=== PATIENT | male | born 1940 | race Native Hawaiian/Other Pacific Islander ===

== ENCOUNTER 2016-12-01 19:10 | Emergency (ER) | payer SELFPAY ==
[~2016-12-01] VITALS: Ht 154.9 cm; Wt 85.0 kg
[~2016-12-01 19:10] MED LIST: ALLO100T PO; ASPI81 CHEW; DIPH50TA PO; FLUV40CA3 PO; GAVISUS; ISOS60 PO; L-CA500C2 PO; RAMI2.5C29 PO; RANI150 PO; TAMS5CAP PO; TRIA.1%T TOP
[2016-12-01] MEDS ORDERED: SODIUM CHLORIDE 0.9% FLUSH 5 ML FLUSH IVF PRN (19:30)
[2016-12-01 19:45] VITALS: BP 148/67; PULSE 69; RESP 18; TEMP 98.8; O2SAT 96
[2016-12-01 19:54] LABS: AUTOMATED NEUTROPHIL # 1.4 TH/MM3 (1.8-7.7); BASOPHIL # 0.1 TH/MM3 (0-0.2); BASOPHIL % 1.4 % (0.0-2.0); EOSINOPHIL # 0.4 TH/MM3 (0-0.4); EOSINOPHIL % 9.5 % (0.0-4.0); HEMATOCRIT 45.9 % (39.0-51.0); HEMO FLAGS DIFF FINAL; LYMPH % 46.9 % (9.0-44.0); LYMPHOCYTE # 2.1 TH/MM3 (1.0-4.8); MEAN CELL VOLUME 98.9 FL (80.0-100.0); MEAN CORPUSCULAR HEMOGLOBIN 33.2 PG (27.0-34.0); MEAN CORPUSCULAR HGB CONC 33.5 % (32.0-36.0); NEUT % 32.2 % (16.0-70.0); PLATELET COUNT 229 TH/MM3 (150-450); RED BLOOD COUNT 4.64 MIL/MM3 (4.50-5.90); RED CELL DISTRIBUTION WIDTH 12.9 % (11.6-17.2); WHITE BLOOD COUNT 4.4 TH/MM3 (4.0-11.0)
--- NOTE | 2016-12-01 20:01 | PD ---
HPI Chief Complaint: fell, worried about brain tumor Time Seen by Provider: 19:37 Travel History International Travel<30 days: No Contact w/Intl Traveler<30days: No Traveled to known affect area: No History of Present Illness HPI The patient is a 76-year-old male that complains of chest pain and vertigo for the last 2 days. The patient states he has chest pain that began 2 days ago located in the left anterior chest wall. The pain is constant and sharp and knifelike. He does have some slight nausea but he does have vertigo. There is no vomiting or diaphoresis or shortness of breath. There is no radiation of pain. The patient also fell because of vertigo today. He denies any tinnitus or hearing loss but does have left ear pain and itching. The patient is very worried that he has a brain tumor because his brother had similar symptoms and he had a brain tumor. The patient and the son want an MRI. The patient speaks only Czech but his son is an excellent silver lap machine tender. They do not want the option of TV translation. The patient has had this chest pain before and it comes on and gets worse when the patient is anxious or upset. He denies any fever. He denies any head trauma and did not hurt himself in the fall. PFSH Past Medical History Hypertension: Yes Kidney Stones: Yes Social History Alcohol Use: No Tobacco Use: No Substance Use: No Allergies-Medications (Allergen,Severity, Reaction): Coded Allergies: Penicillin (Verified Allergy, Severe, HIVES, 12/01/16) Reported Meds & Prescriptions Reported Meds & Active Scripts Active Reported Fish Oil ([place]-3 Fatty Acids) 1,000 Mg Cap 1,000 Mg PO DAILY Flomax (Tamsulosin HCl) 0.4 Mg Cap 0.4 Mg PO HS Finasteride 5 Mg Tab 5 Mg PO HS Do not crush. Rosuvastatin (Rosuvastatin Calcium) 10 Mg Tab 10 Mg PO HS [concor] 5 Mg PO DAILY Ramipril 2.5 Mg Cap 2.5 Mg PO HS Isosorbide Mononitrate ER (Isosorbide Mononitrate) 60 Mg Tab 60 Mg PO DAILY Aspirin 81 Mg Tabdr 81 Mg PO DAILY Allopurinol 100 Mg Tab 100 Mg PO DAILY Review of Systems Except as stated in HPI: all other systems reviewed are Neg Physical Exam Narrative GENERAL: The patient is alert, oriented 3 in moderate apparent distress with his vertigo. SKIN: Warm and dry. HEAD: Atraumatic. Normocephalic. EYES: Pupils equal and round. No scleral icterus. No injection or drainage. ENT: No nasal bleeding or discharge. Mucous membranes pink and moist. NECK: Trachea midline. No JVD. There is no meningismus. CARDIOVASCULAR: Regular rate and rhythm. No murmur appreciated. RESPIRATORY: No accessory muscle use. Clear to auscultation. Breath sounds equal bilaterally. GASTROINTESTINAL: Abdomen soft, non-tender, nondistended. Hepatic and splenic margins not palpable. MUSCULOSKELETAL: No obvious deformities. No clubbing. No cyanosis. No edema. NEUROLOGICAL: Awake and alert. No obvious cranial nerve deficits. Motor grossly within normal limits. Normal speech. PSYCHIATRIC: Appropriate mood and affect; insight and judgment normal. Data Data Last Documented VS Vital Signs Date Time Temp Pulse Resp B/P Pulse Ox O2 Delivery O2 Flow Rate FiO2 12/01/16 22:00 66 17 114/68 96 Room Air 12/01/16 19:45 98.8 Orders Electrocardiogram (12/01/16 19:19) Ckmb (Isoenzyme) Profile (12/01/16 19:19) Complete Blood Count With Diff (12/01/16 19:19) Comprehensive Metabolic Panel (12/01/16 19:19) Magnesium (Mg) (12/01/16 19:19) Prothrombin Time / Inr (Pt) (12/01/16 19:19) Act Partial Throm Time (Ptt) (12/01/16 19:19) Troponin I (12/01/16 19:19) Ecg Monitoring (12/01/16 19:19) Bilateral Bp Monitoring (12/01/16 19:19) Iv Access Insert/Monitor (12/01/16 19:19) Oximetry (12/01/16 19:19) Oxygen Administration (12/01/16 19:19) Sodium Chloride 0.9% Flush (Ns Flush) (12/01/16 19:30) Chest, Pa & Lat (12/01/16 19:19) Mri Brain W&W/O Contrast (12/01/16 19:37) Gadodiamide Pf Inj (Omniscan Pf Inj) (12/01/16 21:21) Meclizine (Antivert) (12/01/16 22:30) Ciprofloxacin (Cipro) (12/01/16 22:30) Labs Laboratory Tests Test 12/01/16 19:44 White Blood Count 4.4 TH/MM3 Red Blood Count 4.64 MIL/MM3 Hemoglobin 15.4 GM/DL Hematocrit 45.9 % Mean Corpuscular Volume 98.9 FL Mean Corpuscular Hemoglobin 33.2 PG Mean Corpuscular Hemoglobin 33.5 % Concent Red Cell Distribution Width 12.9 % Platelet Count 229 TH/MM3 Mean Platelet Volume 8.6 FL Neutrophils (%) (Auto) 32.2 % Lymphocytes (%) (Auto) 46.9 % Monocytes (%) (Auto) 10.0 % Eosinophils (%) (Auto) 9.5 % Basophils (%) (Auto) 1.4 % Neutrophils # (Auto) 1.4 TH/MM3 Lymphocytes # (Auto) 2.1 TH/MM3 Monocytes # (Auto) 0.4 TH/MM3 Eosinophils # (Auto) 0.4 TH/MM3 Basophils # (Auto) 0.1 TH/MM3 CBC Comment DIFF FINAL Differential Comment Prothrombin Time 10.8 SEC Prothromb Time International 1.0 RATIO Ratio Activated Partial 24.3 SEC Thromboplast Time Sodium Level 142 MEQ/L Potassium Level 4.6 MEQ/L Chloride Level 107 MEQ/L Carbon Dioxide Level 26.6 MEQ/L Anion Gap 8 MEQ/L Blood Urea Nitrogen 22 MG/DL Creatinine 1.10 MG/DL Estimat Glomerular Filtration 65 ML/MIN Rate Random Glucose 123 MG/DL Calcium Level 8.1 MG/DL Magnesium Level 1.9 MG/DL Total Bilirubin 1.1 MG/DL Aspartate Amino Transf 19 U/L (AST/SGOT) Alanine Aminotransferase 28 U/L (ALT/SGPT) Alkaline Phosphatase 74 U/L Total Creatine Kinase 67 U/L Troponin I LESS THAN 0.02 NG/ML Total Protein 6.8 GM/DL Albumin 3.4 GM/DL [facility] Medical Decision Making Medical Screen Exam Complete: Yes Emergency Medical Condition: Yes Medical Record Reviewed: Yes Interpretation(s) The MRI brain shows no acute abnormality. The complete metabolic profile shows a BUN 22, GFR 65, glucose 123, calcium 8.1 with total bilirubin 1.1 but is otherwise unremarkable. The cardiac enzymes are normal. The CBC is normal. Differential Diagnosis Acute left otitis media, vertigo, atypical chest pain, electrolyte imbalance, renal insufficiency, ischemic CVA Narrative Course The patient has an acute left otitis media. He also has vertigo which may be related to his left otitis media. An MRI of the brain revealed no abscess extending to the brain. The patient was worried that he might have a brain tumor because his brother had the same symptoms with a brain tumor. Both the patient and his son wanted a MRI. Diagnosis Primary Impression: Acute left otitis media Additional Impression: Vertigo Additional Instructions: As we discussed, follow-up with Dr. Merlos. The meclizine is one tablet 3 times daily. The antibiotic is one tablet twice daily for 10 days. Med/Other Pt SpecificInfo: Prescription(s) given Scripts Ciprofloxacin (Cipro)500 Mg Vat988 Mg PO BID 14 Days Ref 0 Prov:Ray Stevenson MD 12/01/16 Meclizine 25 Mg Chew25 Mg CHEW TID #30 TAB Ref 0 Prov:Ray Stevenson MD 12/01/16 Disposition: 01 DISCHARGE HOME Condition: Stable Ray Stevenson MD Dec 01, 2016 20:01
[2016-12-01 20:04] LABS: CHLORIDE 107 MEQ/L (98-107); POTASSIUM 4.6 MEQ/L (3.5-5.1); SODIUM (NA) 142 MEQ/L (136-145)
[2016-12-01 20:08] LABS: ANION GAP 8 MEQ/L (5-15); BICARBONATE 26.6 MEQ/L (21.0-32.0); BLOOD UREA NITROGEN 22 MG/DL (7-18); MAGNESIUM 1.9 MG/DL (1.5-2.5)
[2016-12-01 20:10] LABS: APTT (PATIENT) 24.3 SEC (24.3-30.1); PROTHROMBIN TIME - PATIENT 10.8 SEC (9.8-11.6)
--- NOTE | 2016-12-01 20:10 | RADHPO ---
EXAM DATE/TIME: 12/01/2016 19:53 [facility] COMPARISON: CHEST SINGLE AP, January 11, 2014, 20:11. INDICATIONS : Chest pain and dizziness. MEDICAL HISTORY : None. SURGICAL HISTORY : None. ENCOUNTER: Initial ACUITY: 2 days PAIN SCORE: 5/10 LOCATION: Bilateral chest FINDINGS: PA and lateral views of the chest demonstrate the lungs to be symmetrically aerated without evidence of mass, infiltrate or effusion. Slight elevation left hemidiaphragm. The cardiomediastinal contours are unremarkable. Osseous structures are intact. CONCLUSION: No acute disease. Urbano Walter MD on December 01, 2016 at 20:08 Board Certified Radiologist. This report was verified electronically.
[2016-12-01 20:11] LABS: ALT (GPT) 28 U/L (12-78); AST (GOT) 19 U/L (15-37); GLOMERULAR FILTRATION RATE 65 ML/MIN (>89)
[2016-12-01 20:12] LABS: TOTAL BILIRUBIN ADULT 1.1 MG/DL (0.2-1.0)
[2016-12-01 20:14] LABS: ALKALINE PHOSPHATASE 74 U/L (45-117)
[2016-12-01 20:17] LABS: CREATINE KINASE 67 U/L (39-308)
[2016-12-01] MEDS ORDERED: FINA5TAB2 PO (21:08)
[2016-12-01] MEDS ORDERED: CONCOR PO (21:08)
[2016-12-01] MEDS ORDERED: ROSU1TAB6 PO (21:08)
[2016-12-01] MEDS ORDERED: RAMI2.5C PO (21:08)
[2016-12-01] MEDS ORDERED: ISOS60TA PO (21:08)
[2016-12-01] MEDS ORDERED: TAMS5CAP PO (21:08)
[2016-12-01] MEDS ORDERED: ASPI1TAB69 PO (21:08)
[2016-12-01] MEDS ORDERED: ALLO100T PO (21:08)
[2016-12-01] MEDS ORDERED: FISH1000 PO (21:08)
[2016-12-01 21:11] VITALS: BP_SYST 119; BP_SYST 125; BP_DIAS 68; BP_DIAS 69; PULSE 68; RESP 18; O2SAT 95
[2016-12-01] MEDS ORDERED: GADODIAMIDE PF 287 MG/ML 20 ML VIAL (for RAD MRI) IV ONE (21:21)
[2016-12-01 21:30] VITALS: BP 118/66; PULSE 71; RESP 17; O2SAT 97
--- NOTE | 2016-12-01 21:49 | RADHPO ---
EXAM DATE/TIME: 12/01/2016 21:28 [facility] COMPARISON: No previous studies available for comparison. INDICATIONS : Dizziness. CONTRAST: 17 cc Omniscan (gadodiamide) IV MEDICAL HISTORY : Diabetes mellitus type 2. Hypertension. SURGICAL HISTORY : None. ENCOUNTER: Initial ACUITY: 2 day PAIN SCORE: 6/10 LOCATION: cranial TECHNIQUE: Multiplanar, multisequence MRI of the brain was performed both prior to and following the administrat ion of paramagnetic contrast. FINDINGS: CEREBRUM: The ventricles are normal for age. No evidence of midline shift, mass lesion, hemorrhage or acute in farction. No extraaxial fluid collections are seen. The pituitary gland and suprasellar cistern are normal in configuration. WHITE MATTER: No significant signal abnormalities are seen in the white matter. POSTERIOR FOSSA: The cerebellum and brainstem are intact. The 4th ventricle is midline. The cerebellopontine angle is unremarkable. The cerebellar tonsils are normal in position. DIFFUSION IMAGING: No focal areas of restricted diffusion are seen. No evidence of acute infarction. EXTRACRANIAL: The visualized portions of the orbits and paranasal sinuses are unremarkable. POST-CONTRAST: No abnormal areas of parenchymal or dural enhancement. No evidence of blood-brain barrier breakdown. CONCLUSION: No acute intracranial abnormality. No acute infarction. Urbano Walter MD on December 01, 2016 at 21:46 Board Certified Radiologist. This report was verified electronically.
[2016-12-01 22:00] VITALS: BP 114/68; PULSE 66; RESP 17; O2SAT 96
[2016-12-01] MEDS ORDERED: CIPROFLOXACIN 500 MG TAB PO ONE (22:30)
[2016-12-01] MEDS ORDERED: MECLIZINE HCL 25 MG TAB PO ONE (22:30)
[2016-12-01] MEDS ORDERED: CIPR-9 PO (22:51)
[2016-12-01] MEDS ORDERED: MECL25CH CHEW (22:51)
[2016-12-01 22:53] VITALS: BP 117/71
--- NOTE | 2016-12-03 07:01 | EKG ---
Date Performed: 12/01/2016 Time Performed: 19:25:16 PTAGE: 76 years EKG: Sinus rhythm Normal ECG NO PREVIOUS TRACING DOCTOR: Manpreet Palma Interpretating Date/Time 12/03/2016 06:58:56
== END 2016-12-01 23:00 | disposition home or self-care (01) ==
LOC: PHED 19:10
DX: H66.92 Otitis media, unspecified, left ear (principal); R42 Dizziness and giddiness; R07.9 Chest pain, unspecified; I10 Essential (primary) hypertension; Z87.442 Personal history of urinary calculi
CPT/HCPCS: 70553; 71020; 80053; 82550; 83735; 84484; 85025; 85610; 85730; 93005; 99285; A9579

== ENCOUNTER 2017-05-15 22:56 | Observation (INO) | payer MEDICAID ==
[~2017-05-15] VITALS: Ht 172.7 cm; Wt 106.0 kg
[~2017-05-15 22:56] MED LIST changes: +ASPI1TAB69 PO; -ASPI81 CHEW; +CIPR-9 PO; +CONCOR PO; -DIPH50TA PO; +FINA5TAB2 PO; +FISH1000 PO; -FLUV40CA3 PO; -GAVISUS; -ISOS60 PO; +ISOS60TA PO; -L-CA500C2 PO; +MECL25CH CHEW; +RAMI2.5C PO; -RAMI2.5C29 PO; -RANI150 PO; +ROSU1TAB6 PO; -TRIA.1%T TOP
[2017-05-15 22:58] VITALS: BP 205/80; PULSE 53; RESP 16; TEMP 98.6; O2SAT 95
[2017-05-15 23:09] VITALS: BP 171/74; PULSE 71; RESP 20; O2SAT 96
[2017-05-15] MEDS ORDERED: NITROGLYCERIN 2% OINT 1 GM PACKET TOP ONE (23:30)
[2017-05-15] MEDS ORDERED: SODIUM CHLORIDE 0.9% FLUSH 10 ML FLUSH IVF PRN (23:30)
[2017-05-15] MEDS ORDERED: ASPIRIN 81 MG CHEW TAB PO ONE (23:30)
--- NOTE | 2017-05-15 23:49 | RADRPT ---
EXAM DATE/TIME: 05/15/2017 23:14 [facility] COMPARISON: CHEST SINGLE AP, January 11, 2014, 20:11. INDICATIONS : Chest pain x 2 days. MEDICAL HISTORY : Myocardial infarction. Hypertension SURGICAL HISTORY : None. ENCOUNTER: Initial ACUITY: 2 days PAIN SCORE: 8/10 LOCATION: Bilateral chest FINDINGS: A single view of the chest demonstrates the lungs to be symmetrically aerated without evidence of mas s, infiltrate or effusion. There is some elevation of the left hemidiaphragm. There is a suggestion of some pulmonary venous congestion. The cardiomediastinal contours are unremarkable and stable. Oss eous structures are intact and stable. CONCLUSION: Pulmonary venous congestion. Carlos Barbour MD on May 15, 2017 at 23:47 Board Certified Radiologist. This report was verified electronically.
[2017-05-15 23:54] LABS: AUTOMATED NEUTROPHIL # 1.2 TH/MM3 (1.8-7.7); BASOPHIL % 0.6 % (0.0-2.0); EOSINOPHIL # 0.3 TH/MM3 (0-0.4); EOSINOPHIL % 6.1 % (0.0-4.0); HEMATOCRIT 45.4 % (39.0-51.0); HEMO FLAGS DIFF FINAL; LYMPH % 57.5 % (9.0-44.0); LYMPHOCYTE # 2.9 TH/MM3 (1.0-4.8); MEAN CELL VOLUME 98.6 FL (80.0-100.0); MEAN CORPUSCULAR HEMOGLOBIN 33.8 PG (27.0-34.0); MEAN CORPUSCULAR HGB CONC 34.3 % (32.0-36.0); NEUT % 23.8 % (16.0-70.0); PLATELET COUNT 218 TH/MM3 (150-450); RED CELL DISTRIBUTION WIDTH 13.4 % (11.6-17.2)
[2017-05-16] VITALS: BP 137/62; PULSE 51; RESP 16; O2SAT 96
--- NOTE | 2017-05-16 00:12 | PD ---
HPI Chief Complaint: Chest Pain Time Seen by Provider: 23:09 Travel History International Travel<30 days: No Contact w/Intl Traveler<30days: No Traveled to known affect area: No History of Present Illness HPI This is a 76-year-old male who presents to the emergency department with chest discomfort that's been going on intermittently for 2 weeks, moderate severity, radiating to the left shoulder and left back. His family reports that he's been increasingly tired when he walks. He denies any shortness of breath, nausea or diaphoresis. He's never had chest discomfort like this before. He does have a history of hypertension. The family speaks Turkish. They were offered a ingredient mixer but they declined. Patient denies any recent travel or long trips. PFSH Past Medical History Cardiovascular Problems: Yes Diabetes: No Patient Takes Glucophage: No Diminished Hearing: No Hypertension: Yes Kidney Stones: Yes ?: Not Family History Family Myocardial Infarction: Yes Social History Alcohol Use: No Tobacco Use: No Substance Use: No Allergies-Medications (Allergen,Severity, Reaction): Coded Allergies: Penicillin (Verified Allergy, Severe, HIVES, 05/15/17) Reported Meds & Prescriptions Reported Meds & Active Scripts Active Reported Aspirin 81 (Aspirin) 81 Mg Tabdr 81 Mg PO DAILY Isosorbide Mononitrate 20 Mg Tab 60 Mg PO BID Take 2 doses 7 hours apart. Bisoprolol (Bisoprolol Fumarate) 10 Mg Tab 10 Mg PO DAILY Flomax (Tamsulosin HCl) 0.4 Mg Cap 0.4 Mg PO HS Finasteride 5 Mg Tab 5 Mg PO HS Do not crush. Review of Systems Except as stated in HPI: all other systems reviewed are Neg Physical Exam Narrative GENERAL:Well appearing, no acute distress SKIN: Focused skin assessment warm and dry. HEAD: Atraumatic. Normocephalic. EYES: Pupils equal and round. No injection or drainage. ENT: Moist mucous membranes NECK: Trachea midline. CARDIOVASCULAR: Regular rate and rhythm. No murmur appreciated. RESPIRATORY: Clear to auscultation. Breath sounds equal bilaterally. GASTROINTESTINAL: Abdomen soft, non-tender, nondistended. MUSCULOSKELETAL: No obvious deformities. NEUROLOGICAL: Awake and alert. No obvious cranial nerve deficits. Moving all extremities. PSYCHIATRIC: Appropriate mood and affect; insight and judgment normal. Data Data Last Documented VS Vital Signs Date Time Temp Pulse Resp B/P Pulse Ox O2 Delivery O2 Flow Rate FiO2 05/16/17 00:00 51 16 137/62 96 Room Air 05/15/17 22:58 98.6 Orders Electrocardiogram (05/15/17 23:18) Complete Blood Count With Diff (05/15/17 23:18) Comprehensive Metabolic Panel (05/15/17 23:18) Troponin I (05/15/17 23:18) Chest, Single Ap (05/15/17 23:18) Ecg Monitoring (05/15/17:18) Bilateral Bp Monitoring (05/15/17 23:18) Iv Access Insert/Monitor (05/15/17 23:18) Oximetry (05/15/17:18) Oxygen Administration (05/15/17:18) Aspirin Chew (Aspirin Chew) (05/15/17 23:30) Nitroglycerin 2% Oint (Nitroglycerin 2% (05/15/17 23:30) Sodium Chloride 0.9% Flush (Ns Flush) (05/15/17 23:30) Acetaminophen (Tylenol) (05/16/17 00:30) B-Type Natriuretic Peptide (05/16/17 00:56) Admit Order (Ed Use Only) (05/16/17 01:45) Activity Bed Rest With Brp (05/16/17 01:45) Vital Signs (Adult) Q4H (05/16/17 01:45) Cardiac Rhythm .As Directed (05/16/17 01:45) Notify Dr: Other .PRN (05/16/17 01:45) Notify Parameters (05/16/17 01:45) Resp Oxygen Nasal Cannula (05/16/17 ) Diet Npo (05/16/17 Breakfast) Troponin I (05/16/17 01:45) Troponin I (05/16/17 04:45) Electrocardiogram (05/16/17 01:45) Electrocardiogram (05/16/17 04:45) ^ Obtain (05/16/17 01:45) Sodium Chloride 0.9% Flush (Ns Flush) (05/16/17 01:45) Sodium Chloride 0.9% Flush (Ns Flush) (05/16/17 01:45) Quill Cleaning Machine Operator / Telemetry SOPHIA.Q8H (05/16/17 01:45) Labs Laboratory Tests Test 05/15/17 05/15/17 23:30 23:32 White Blood Count 5.0 TH/MM3 Red Blood Count 4.60 MIL/MM3 Hemoglobin 15.6 GM/DL Hematocrit 45.4 % Mean Corpuscular Volume 98.6 FL Mean Corpuscular Hemoglobin 33.8 PG Mean Corpuscular Hemoglobin 34.3 % Concent Red Cell Distribution Width 13.4 % Platelet Count 218 TH/MM3 Mean Platelet Volume 8.6 FL Neutrophils (%) (Auto) 23.8 % Lymphocytes (%) (Auto) 57.5 % Monocytes (%) (Auto) 12.0 % Eosinophils (%) (Auto) 6.1 % Basophils (%) (Auto) 0.6 % Neutrophils # (Auto) 1.2 TH/MM3 Lymphocytes # (Auto) 2.9 TH/MM3 Monocytes # (Auto) 0.6 TH/MM3 Eosinophils # (Auto) 0.3 TH/MM3 Basophils # (Auto) 0.0 TH/MM3 CBC Comment DIFF FINAL Differential Comment B-Type Natriuretic Peptide 27 PG/ML Sodium Level 140 MEQ/L Potassium Level 4.5 MEQ/L Chloride Level 106 MEQ/L Carbon Dioxide Level 26.6 MEQ/L Anion Gap 7 MEQ/L Blood Urea Nitrogen 26 MG/DL Creatinine 1.04 MG/DL Estimat Glomerular Filtration 69 ML/MIN Rate Random Glucose 95 MG/DL Calcium Level 9.4 MG/DL Total Bilirubin 1.0 MG/DL Aspartate Amino Transf 24 U/L (AST/SGOT) Alanine Aminotransferase 32 U/L (ALT/SGPT) Alkaline Phosphatase 72 U/L Troponin I LESS THAN 0.02 NG/ML Total Protein 7.3 GM/DL Albumin 3.7 GM/DL [facility] Medical Decision Making Medical Screen Exam Complete: Yes Emergency Medical Condition: Yes Interpretation(s) afebrile, no tachycardia, hypertensive no leukocytosis electrolytes within normal limits bnp 27 troponin .02 Last 24 hours Impressions Chest X-Ray 05/15/17 2227 Signed Impressions: Service Date/Time: Monday, May 15, 2017 23:14 - CONCLUSION: Pulmonary venous congestion. Carlos Barbour MD Differential Diagnosis Acute coronary syndrome, congestive heart failure, aortic dissection, pulmonary embolism, pneumonia Narrative Course This is a 76-year-old male who presents the emergency department with left- sided chest discomfort that radiates to the shoulder into the back. His symptoms are concerning for acute coronary syndrome. He was placed on a monitor and an IV was established. He was given aspirin and nitroglycerin. EKG is nonischemic. Labs are reassuring. I don't suspect pulmonary embolism or alternate life-threatening etiology of his chest pain given the description of the symptoms. Patient will be observed in the chest pain center for serial cardiac enzymes. Diagnosis Primary Impression: Chest pain Qualified Code: R07.9 - Chest pain, unspecified type Admitting Information Admitting Physician Requests: Barbara Cameron MD May 16, 2017 00:12
[2017-05-16] MEDS ORDERED: ACETAMINOPHEN 500 MG CPLT PO ONE (00:30)
[2017-05-16 00:54] LABS: ALKALINE PHOSPHATASE 72 U/L (45-117); ALT (GPT) 32 U/L (12-78); AST (GOT) 24 U/L (15-37); BLOOD UREA NITROGEN 26 MG/DL (7-18); GLOMERULAR FILTRATION RATE 69 ML/MIN (>89)
[2017-05-16 00:55] LABS: ANION GAP 7 MEQ/L (5-15); BICARBONATE 26.6 MEQ/L (21.0-32.0); CHLORIDE 106 MEQ/L (98-107); POTASSIUM 4.5 MEQ/L (3.5-5.1); SODIUM (NA) 140 MEQ/L (136-145)
[2017-05-16] MEDS ORDERED: ASPI-110 PO (01:14)
[2017-05-16] MEDS ORDERED: BISO10TA5 PO (01:14)
[2017-05-16] MEDS ORDERED: ISOS20TA PO (01:14)
[2017-05-16] MEDS ORDERED: SODIUM CHLORIDE 0.9% FLUSH 10 ML FLUSH IV FLUSH PRN (01:45)
[2017-05-16] MEDS: SODIUM CHLORIDE 0.9% FLUSH 10 ML FLUSH IV FLUSH SCH ×2 (01:45→09:00)
[2017-05-16 01:52] VITALS: O2SAT 95
[2017-05-16 05:48] VITALS: BP 123/57; PULSE 60; RESP 20; O2SAT 96
--- NOTE | 2017-05-16 08:06 | HHI.HP ---
[facility] Primary Care Physician Raymond Merlos MD Chief Complaint Chest pain History of Present Illness This is a 76-year-old male that presents to the ED via private vehicle with his son with a complaint of chest discomfort. He speaks Romanian and his son is doing the translating at the request of the patient. He has been having intermittent left-sided chest discomfort that radiates into the neck and left shoulder. When it occurs it last for 5-6 hours and can be worsened with activity which his son describes as walking. Denies associated shortness of breath, nausea, or diaphoresis. His son states that as been happening about every 3-4 days. States he has had this evaluated by a year ago with a local autos disassembler and had a stress test that was okay. He is compliant with his medications. Denies recent illness. Denies fevers or chills. Denies recent travel. Review of Systems General: Patient denies fevers, chills recent, and recent travel HEENT: Patient denies headache, sore throat, difficulty swallowing. Cardiovascular: Has the chest discomfort as mentioned above. Denies sensation of heart beating rapidly or irregularly. No syncope. Respiratory: Denies shortness of breath or inspirational chest discomfort. Denies coughing wheezing or hemoptysis. GI: Patient denies nausea, vomiting, diarrhea, abdominal pain, bloody stools. Musculoskeletal: Patient denies joint pain or edema. Denies calf pain or edema. Neurovascular: Patient denies numbness, tingling, weakness in extremities. Denies headache. Endocrine: Denies polyuria and polydipsia. Hematologic: Denies easy bruising. Skin: Denies rash or itching. Past Family Social History Allergies: Coded Allergies: Penicillin (Verified Allergy, Severe, HIVES, 05/15/17) Past Medical History BPH, hypertension. Denies diabetes, hyperlipidemia, and known CAD. Past Surgical History Noncontributory. Denies prior cardiac catheterization. Reported Medications Reported Meds & Active Scripts Active Reported Aspirin 81 (Aspirin) 81 Mg Tabdr 81 Mg PO DAILY Isosorbide Mononitrate 20 Mg Tab 60 Mg PO BID Take 2 doses 7 hours apart. Bisoprolol (Bisoprolol Fumarate) 10 Mg Tab 10 Mg PO DAILY Flomax (Tamsulosin HCl) 0.4 Mg Cap 0.4 Mg PO HS Finasteride 5 Mg Tab 5 Mg PO HS Do not crush. Active Ordered Medications Current Medications Medications (Trade) Dose Ordered Sig/Crystal Route Start Time Stop Time Status Last Admin (NS Flush) 2 ml UNSCH PRN IV FLUSH 05/16/17 01:45 (NS Flush) 2 ml BID IV FLUSH 05/16/17 01:45 05/16/17 01:45 Family History Denies family history of CAD. Social History Patient is a nonsmoker. Denies alcohol or illicit drugs. Physical Exam Vital Signs Vital Signs Date Time Temp Pulse Resp B/P Pulse Ox O2 Delivery O2 Flow Rate FiO2 05/16/17 05:48 60 20 123/57 96 Room Air 05/16/17 01:52 95 21 05/16/17 00:00 51 16 137/62 96 Room Air 05/15/17 23:09 71 20 171/74 96 05/15/17 22:58 98.6 53 16 205/80 95 Room Air Physical Exam GENERAL: This is a well-nourished, well-developed patient, in no apparent distress. Patient speaks in Romanian. His son is translating for him. HEENT: Head is atraumatic and normocephalic. Neck is supple without lymphadenopathy and trachea is midline. No JVD or carotid bruits. CARDIOVASCULAR: Regular rate and rhythm without murmurs, gallops, or rubs. RESPIRATORY: Clear to auscultation. Breath sounds equal bilaterally. No wheezes , rales, or rhonchi. Chest wall is nontender. No use of accessory muscles. GASTROINTESTINAL: Abdomen is nontender, nondistended. Abdomen soft. No obvious pulsatile mass or bruit. No CVA tenderness. Strong femoral pulses bilaterally. Normal bowel sounds in all quadrants. MUSCULOSKELETAL: Patient is moving upper and lower extremities freely. No calf tenderness or edema, no Homans sign. Strong pulses in upper and lower extremities. NEUROLOGICAL: Patient is alert and oriented. Cranial nerves 2-12 are grossly intact. No focal deficits and speech is clear. SKIN: No rash and turgor is normal. Laboratory Laboratory Tests Test 05/15/17 05/15/17 05/16/17 05/16/17 23:30 23:32 02:41 04:47 White Blood Count 5.0 Red Blood Count 4.60 Hemoglobin 15.6 Hematocrit 45.4 Mean Corpuscular Volume 98.6 Mean Corpuscular Hemoglobin 33.8 Mean Corpuscular Hemoglobin 34.3 Concent Red Cell Distribution Width 13.4 Platelet Count 218 Mean Platelet Volume 8.6 Neutrophils (%) (Auto) 23.8 Lymphocytes (%) (Auto) 57.5 Monocytes (%) (Auto) 12.0 Eosinophils (%) (Auto) 6.1 Basophils (%) (Auto) 0.6 Neutrophils # (Auto) 1.2 Lymphocytes # (Auto) 2.9 Monocytes # (Auto) 0.6 Eosinophils # (Auto) 0.3 Basophils # (Auto) 0.0 CBC Comment DIFF FINAL Differential Comment B-Type Natriuretic Peptide 27 Sodium Level 140 Potassium Level 4.5 Chloride Level 106 Carbon Dioxide Level 26.6 Anion Gap 7 Blood Urea Nitrogen 26 Creatinine 1.04 Estimat Glomerular Filtration 69 Rate Random Glucose 95 Calcium Level 9.4 Total Bilirubin 1.0 Aspartate Amino Transf 24 (AST/SGOT) Alanine Aminotransferase 32 (ALT/SGPT) Alkaline Phosphatase 72 Troponin I LESS THAN 0.02 LESS THAN 0.02 LESS THAN 0.02 Total Protein 7.3 Albumin 3.7 Result Diagram: 05/15/17 2330 05/15/17 2332 Imaging Last 48 hours Impressions Chest X-Ray 05/15/17 2318 Signed Impressions: Service Date/Time: Monday, May 15, 2017 23:14 - CONCLUSION: Pulmonary venous congestion. Carlos Barbour MD Course EKGs have sinus rhythm to sinus bradycardia without significant ST segment depressions or elevations. Assessment and Plan Assessment and Plan * Chest pain: Patient has had serial cardiac enzymes and EKGs for ruling out purposes. He has been seen by Dr. Daniel Veloz of cardiology in the chest pain center and will undergo a Lexiscan. He'll be discharged home if the stress test is nonischemic. * Hypertension: Continue current medication. * BPH: Continue current medication. Patient is stable at this time. He is agreeable to this plan. Aakash Mckinney May 16, 2017 08:06
[2017-05-16] MEDS ORDERED: ISOSORBIDE MONONITRATE 20 MG TAB PO SCH (09:00)
[2017-05-16] MEDS ORDERED: REGADENOSON INJ 0.4 MG/5 ML SYR ONE (09:18)
[2017-05-16] MEDS ORDERED: ASPIRIN 325 MG TAB PO SCH (09:30)
[2017-05-16] MEDS ORDERED: BISOPROLOL FUMARATE 5 MG TAB PO SCH (10:00)
--- NOTE | 2017-05-16 10:47 | RADRPT ---
EXAM DATE/TIME: 05/16/2017 08:59 [facility] COMPARISON: No previous studies available for comparison. INDICATIONS : Susbternal chest pain radiating to back. Angina. DOSE: 35.0 mCi Tc99m Myoview at stress. 11.0 mCi Tc99m Myoview at rest. 0.4 mg Lexiscan STRESS SYMPTOMS: Dyspnea and heart racing. EJECTION FRACTION: 61% MEDICAL HISTORY : Hypertension. SURGICAL HISTORY : None. ENCOUNTER: Initial ACUITY: 2 days PAIN SCALE: 4/10 LOCATION: Substernal chest TECHNIQUE: The patient underwent pharmacologic stress with infusion of prescribed dose. Continuous ECG tracing was monitored during stress. Gated SPECT imaging was performed after stress and conventional SPECT i maging was performed at rest. The examination was performed on a SPECT/CT scanner, both attenuation and non-corrected datasets were reviewed. FINDINGS: DISTRIBUTION: The maximum perfused segment at stress is in the <mid anterior septal wall. PERFUSION STUDY: The pattern of perfusion at stress is within normal limits. GATED STUDY: There is intact wall motion and thickening without hypokinetic or dyskinetic segments. CONCLUSION: Normal examination. RISK CATEGORY: Low (<1% Annual Mortality Rate) Herberth Ji MD on May 16, 2017 at 10:44 Board Certified Radiologist. This report was verified electronically.
[2017-05-16 11:00] VITALS: BP 144/65; PULSE 59; RESP 15; TEMP 97.9; O2SAT 98
[2017-05-16] MEDS ORDERED: IOHEXOL 350 MG/ML 10 ML VIAL (for RAD DIAG) IV ONE (13:20)
--- NOTE | 2017-05-16 13:35 | RADRPT ---
EXAM DATE/TIME: 05/16/2017 13:17 [place] COMPARISON: CT PULMONARY ANGIOGRAM, January 11, 2014, 22:26. INDICATIONS : Chest pain and shortness of breath. IV CONTRAST: 70 cc Omnipaque 350 (iohexol) IV RADIATION DOSE: 23.23 CTDIvol (mGy) MEDICAL HISTORY : Cardiovascular disease. Hypertension. SURGICAL HISTORY : None. ENCOUNTER: Initial ACUITY: 1 day PAIN SCALE: 6/10 LOCATION: Bilateral chest TECHNIQUE: Volumetric scanning of the chest was performed using a pulmonary embolism protocol MIP images were re constructed. Using automated exposure control and adjustment of the mA and/or kV according to patien t size, radiation dose was kept as low as reasonably achievable to obtain optimal diagnostic quality images. DICOM format image data is available electronically for review and comparison. Follow-up recommendations for incidentally detected pulmonary nodules are based at a minimum on nodul e size and patient risk factors according to Fleischner Society Guidelines. FINDINGS: Breathing motion artifact degrades the exam. PULMONARY ARTERIES: No filling defects are seen in the pulmonary arteries through the segmental level. LUNGS: There is no consolidation or pneumothorax . No concerning pulmonary nodule is visualized. PLEURAE: There is no pleural thickening or pleural effusion. MEDIASTINUM: The heart is at the upper limits of normal in terms of size. No pericardial effusion. Coronary artery atherosclerotic calcifications noted. No adenopathy. Aorta is normal in caliber. MUSCULOSKELETAL: Degenerative changes of the thoracic spine. MISCELLANEOUS: The visualized upper abdominal organs demonstrate no acute abnormality. CONCLUSION: 1. Breathing motion artifact degrades the exam. This limits the evaluation of the peripheral lower lo be pulmonary branches. 2. No pulmonary emboli observed. 3. Coronary artery atherosclerotic calcifications. Piyush Shultz Jr., MD on May 16, 2017 at 13:26 Board Certified Radiologist. This report was verified electronically.
--- NOTE | 2017-05-16 14:22 | EKG ---
Date Performed: 05/16/2017 Time Performed: 04:52:55 PTAGE: 76 years EKG: SINUS BRADYCARDIA WITH SINUS ARRHYTHMIA BORDERLINE ECG NO PREVIOUS TRACING DOCTOR: Daniel Veloz Interpretating Date/Time 05/16/2017 14:20:20
--- NOTE | 2017-05-16 14:22 | EKG ---
Date Performed: 05/15/2017 Time Performed: 23:08:26 PTAGE: 76 years EKG: SINUS BRADYCARDIA WITH SINUS ARRHYTHMIA BORDERLINE ECG NO PREVIOUS TRACING DOCTOR: Daniel Veloz Interpretating Date/Time 05/16/2017 14:20:56
--- NOTE | 2017-05-16 14:22 | EKG ---
Date Performed: 05/16/2017 Time Performed: 02:44:23 PTAGE: 76 years EKG: SINUS BRADYCARDIA WITH SINUS ARRHYTHMIA BORDERLINE ECG NO PREVIOUS TRACING DOCTOR: Daniel Veloz Interpretating Date/Time 05/16/2017 14:20:26
--- NOTE | 2017-05-16 14:27 | TR ---
Date Performed: 05/16/2017 Time Performed: 09:50:44 DOCTOR: Daniel Veloz DRUG LIST: CLINICAL HISTORY: REASON FOR TEST: REASON FOR ENDING: OBSERVATION: CONCLUSION: Lexiscan stress test was performed under standard four minute protocol. Radionuclid e was injected one minute prior to ending the test. No electrocardiographic abormalities were present to suggest ischemia. Nuclear imaging and interpretation are pending. COMMENTS:
--- NOTE | 2017-05-16 14:46 | HHI.DCPOC ---
Discharge Care Plan Diagnosis: (1) Chest pain (2) Hypertension Goals to Promote Your Health * To prevent worsening of your condition and complications * To maintain your health at the optimal level Directions to Meet Your Goals Take your medications as prescribed Follow your dietary instruction Follow activity as directed Keep your appointments as scheduled Take your immunizations and boosters as scheduled If your symptoms worsen call your PCP, if no PCP go to Urgent Care Center or Emergency Room Smoking is Dangerous to Your Health. Avoid second hand smoke Call the 24-hour hour crisis hotline for domestic abuse at Aakash Mckinney May 16, 2017 14:46
[2017-05-16] MEDS ORDERED: FINASTERIDE 5 MG TAB PO SCH (21:00)
== END 2017-05-16 15:10 | disposition home or self-care (01) ==
LOC: NEPC 22:56 → NEDA 05-16 01:47 → NEDH 05-16 05:38 → NEPHCDU 05-16 09:14
PROVIDERS: ADMIT Internal Medicine Interventional Cardiology; ATTEND Internal Medicine Interventional Cardiology
DX: R07.89 Other chest pain (principal); R00.1 Bradycardia, unspecified; I87.8 Other specified disorders of veins; R06.00 Dyspnea, unspecified; R06.02 Shortness of breath; I49.8 Other specified cardiac arrhythmias; I25.119 Atherosclerotic heart disease of native coronary artery with unspecified angina pectoris; I25.2 Old myocardial infarction; I10 Essential (primary) hypertension; N40.0 Benign prostatic hyperplasia without lower urinary tract symptoms; Z79.899 Other long term (current) drug therapy; Z79.82 Long term (current) use of aspirin
CPT/HCPCS: 71010; 71275; 78452; 80053; 83880; 84484; 85025; 85379; 93005; 93017; 99285; A9502; G0378; J2785; Q9967

== ENCOUNTER 2018-08-02 15:46 | Observation (INO) ==
--- NOTE | 2018-08-02 16:46 | XR ---
EXAM DATE: 08/02/2018 4:16 PM EDT AGE/SEX: 77 years / Male INDICATIONS: . Chest pain and elevated blood pressure. CLINICAL DATA: This is the patient's initial encounter. Patient reports that signs and symptoms have been present for 2 days and indicates a pain score of 5/10. MEDICAL/SURGICAL HISTORY: None. None. COMPARISON: [facility], CHEST 1V SINGLE AP, 05/05/2018. . FINDINGS: PA and lateral views of the chest demonstrate elevation left hemidiaphragm. Left basilar atelectasis. Right lung clear. The cardiomediastinal contours are unremarkable. Osseous structures are intact. Ky phosis and degenerative changes thoracic spine CONCLUSION: Elevation left hemidiaphragm with left basilar atelectasis/scarring. Electronically signed by: Urbano Walter MD 08/02/2018 4:45 PM EDT
[2018-08-02 18:03] LABS: Baso # (Auto) 0.1 th/mm3 (0.0-0.2); Baso % (Auto) 1.4 % (0.0-2.0); Eos # (Auto) 0.2 th/mm3 (0.0-0.4); Eos % (Auto) 4.2 % (0.0-4.0); Hematocrit 43.3 % (39.0-51.0); Hemoglobin 15.2 gm/dL (13.0-17.0); Lymph % (Auto) 44.7 % (9.0-44.0); Mean Corpuscular Hemoglobin 34.9 pg (27.0-34.0); Mean Corpuscular Volume 99.8 fL (80.0-100.0); Mean Platelet Volume 9.1 fL (7.0-11.0); Mono # (Auto) 0.4 th/mm3 (0.0-0.9); Mono % (Auto) 9.2 % (0.0-8.0); Neut # (Auto) 1.8 th/mm3 (1.8-7.7); Neut % (Auto) 40.5 % (16.0-70.0); Platelet Count 234 th/mm3 (150-450); Red Blood Count 4.34 mil/mm3 (4.50-5.90); Red Cell Distribution Width 13.5 % (11.6-17.2); White Blood Count 4.5 th/mm3 (4.0-11.0)
--- NOTE | 2018-08-02 18:06 | ED ---
HPI General Chief Complaint: Chest Pain Stated Complaint: Patient states chest pain Time Seen by Provider: 08/02/18 17:34 Source: patient Mode of arrival: ambulatory Limitations: language barrier (Stratus utilized for the purpose of this interview) History of Present Illness HPI narrative: Patient is a 77-year-old male that presents to the emergency room for evaluation of chest pain. Patient states it started at 9 AM this morning, he took 2 pain pills. The pain was midsternal, there was no radiation. He states the pain lasted for approximately 3 hours. He denied any nausea, shortness of breath. He states at that time his blood pressure was high and he had a headache. Patient is currently pain-free. He denies any visual changes, dizziness, fevers, chills. Patient is on a beta-gina add a nitrate. He denies any history of heart attack or stroke. He denies any other medical history besides hypertension. Patient speaks Greenlandic only. MD complaint: Reports chest pain STEMI Alert: No Onset (ago): hour(s) Duration: now resolved Onset: during rest Pain location: Reports substernal Severity: moderate Severity scale (1-10): 8 Quality: Reports heaviness Pain radiation: Reports none Relieving factors: nothing Exacerbating factors: nothing Related Data Home Medications Medication Instructions Recorded Confirmed tamsulosin [Flomax] 0.4 mg PO DAILY 08/02/18 08/02/18 Allergies Allergy/AdvReac Type Severity Reaction Status Date / Time penicillin G Allergy Severe HIVES Verified 08/02/18 17:45 Review of Systems ROS: all other systems reviewed are negative [facility] Medical History Medical History Hypertension (Acute) Social History Social History Substance History: No History of Abuse Smoking Status: Unknown if ever smoked Tobacco Type: Cigarettes How Often Do You Have a Drink Containing Alcohol: Monthly or less Immunization History Tetanus Immunization: Unsure Exam Narrative Exam Narrative: GENERAL: Overweight, well-developed, alert elderly male. Presenting in no acute distress. SKIN: Focused skin assessment warm/dry. HEAD: Atraumatic. Normocephalic. EYES: Pupils equal and round. No scleral icterus. No injection or drainage. ENT: No nasal bleeding or discharge. Mucous membranes pink and moist. NECK: Trachea midline. No JVD. CARDIOVASCULAR: Regular rate and rhythm. No murmur appreciated. RESPIRATORY: No accessory muscle use. Clear to auscultation. Breath sounds equal bilaterally. GASTROINTESTINAL: Abdomen soft, non-tender, nondistended. Hepatic and splenic margins not palpable. MUSCULOSKELETAL: No obvious deformities. No clubbing. No cyanosis. No edema. NEUROLOGICAL: Awake and alert. No obvious cranial nerve deficits. Motor grossly within normal limits. Normal speech. PSYCHIATRIC: Appropriate mood and affect; insight and judgment normal. Course Initial Documented Vital Signs Temperature 98.1 F 08/02/18 15:49 Pulse Rate 72 08/02/18 15:49 Respiratory Rate 20 08/02/18 15:49 Blood Pressure 161/72 H 08/02/18 15:49 Pulse Oximetry 97 08/02/18 15:49 Last Documented Vital Signs Temperature 98.1 F 08/02/18 15:49 Pulse Rate 62 08/02/18 18:00 Respiratory Rate 20 08/02/18 15:52 Blood Pressure 138/63 08/02/18 15:52 Pulse Oximetry 96 08/02/18 17:42 Medical Decision Making [facility] Narrative Medical decision making narrative: Patient presented for evaluation of chest pain that started at 9 AM lasting for approximately 3 hours. Patient is currently pain-free, vital signs are stable. Labs ordered and pending. Chest x -ray and EKG ordered and pending. CBC with no acute findings, chemistry with elevated BUN at 32, patient's urine is consistent with a urinary tract infection. He will be started on Macrobid. Stratus was again utilized to interpret and advise patient and his on findings. They verbalized understanding and are agreeable to stay. Admit orders placed. Medical Screen Exam Complete: Yes Emergency Medical Condition: Yes Differential Diagnosis Differential Diagnosis: ACS versus USA versus GERD versus metabolic abnormality versus arrhythmia versus other Lab Data Result diagrams: 08/02/18 16:55 08/02/18 16:55 Lab Results 08/02/18 08/02/18 08/02/18 Range/Units 16:55 16:55 16:55 WBC 4.5 (4.0-11.0) th/mm3 RBC 4.34 L (4.50-5.90) mil/mm3 Hgb 15.2 (13.0-17.0) gm/dL Hct 43.3 (39.0-51.0) % MCV 99.8 (80.0-100.0) fL MCH 34.9 H (27.0-34.0) pg MCHC 35.0 (32.0-36.0) % RDW 13.5 (11.6-17.2) % Plt Count 234 (150-450) th/mm3 MPV 9.1 (7.0-11.0) fL Neut % (Auto) 40.5 (16.0-70.0) % Lymph % (Auto) 44.7 H (9.0-44.0) % [place] % (Auto) 9.2 H (0.0-8.0) % Eos % (Auto) 4.2 H (0.0-4.0) % Baso % (Auto) 1.4 (0.0-2.0) % Neut # (Auto) 1.8 (1.8-7.7) th/mm3 Lymph # (Auto) 2.0 (1.0-4.8) th/mm3 [place] # (Auto) 0.4 (0.0-0.9) th/mm3 Eos # (Auto) 0.2 (0.0-0.4) th/mm3 Baso # (Auto) 0.1 (0.0-0.2) th/mm3 WBC Differential . Differential Comment Auto diff final Sodium 141 (136-145) meq/L Potassium 4.3 (3.5-5.1) meq/L Chloride 106 (98-107) meq/L Carbon Dioxide 25.9 (21.0-32.0) meq/L Anion Gap 9 (5-15) meq/L BUN 32 H (7-18) mg/dL Creatinine 1.17 (0.60-1.30) mg/dL Estimated GFR 60 L (>89) mL/min Random Glucose 96 (74-106) mg/dL Calcium 8.7 (8.5-10.1) mg/dL Total Bilirubin 1.6 H Cancelled (0.2-1.0) mg/dL Direct Bilirubin 0.3 H Cancelled (0.0-0.2) mg/dL Indirect Bilirubin 1.3 H Cancelled (0.0-0.8) mg/dL AST 17 Cancelled (15-37) U/L ALT 22 Cancelled (12-78) U/L Alkaline Phosphatase 65 Cancelled (45-117) U/L Total Creatine Kinase 110 (39-308) U/L CK-MB (CK-2) 1.8 (0.5-3.6) ng/mL Troponin I Less than 0.02 L (0.02-0.05) ng/mL Total Protein 7.3 Cancelled (6.4-8.2) g/dL Albumin 3.8 Cancelled (3.4-5.0) g/dL Lipase 179 Cancelled (73-393) U/L Urine Color (Yellw/Straw) Urine Clarity (Clear) Urine pH (5.0-8.5) Ur Specific Avery (1.002-1.035) Urine Protein (Neg-Trace) mg/dL Urine Glucose (UA) (Negative) mg/dL Urine Ketones (Negative) mg/dL Urine Occult Blood (Negative) Urine Nitrate (Negative) Urine Bilirubin (Negative) Urine Urobilinogen (Less than 2) mg/dL Ur Leukocyte Esterase (Negative) Urine RBC (0-3) /hpf Urine WBC (0-5) /hpf Calcium Oxalate Crystal (None) /hpf Urine Bacteria (None) /hpf Urine Mucus (Occasional) /lpf Micro UA Comment Ur Microscopic Review Urine Culture Comments 08/02/18 Range/Units 17:05 WBC (4.0-11.0) th/mm3 RBC (4.50-5.90) mil/mm3 Hgb (13.0-17.0) gm/dL Hct (39.0-51.0) % MCV (80.0-100.0) fL MCH (27.0-34.0) pg MCHC (32.0-36.0) % RDW (11.6-17.2) % Plt Count (150-450) th/mm3 MPV (7.0-11.0) fL Neut % (Auto) (16.0-70.0) % Lymph % (Auto) (9.0-44.0) % [place] % (Auto) (0.0-8.0) % Eos % (Auto) (0.0-4.0) % Baso % (Auto) (0.0-2.0) % Neut # (Auto) (1.8-7.7) th/mm3 Lymph # (Auto) (1.0-4.8) th/mm3 [place] # (Auto) (0.0-0.9) th/mm3 Eos # (Auto) (0.0-0.4) th/mm3 Baso # (Auto) (0.0-0.2) th/mm3 WBC Differential Differential Comment Sodium (136-145) meq/L Potassium (3.5-5.1) meq/L Chloride (98-107) meq/L Carbon Dioxide (21.0-32.0) meq/L Anion Gap (5-15) meq/L BUN (7-18) mg/dL Creatinine (0.60-1.30) mg/dL Estimated GFR (>89) mL/min Random Glucose (74-106) mg/dL Calcium (8.5-10.1) mg/dL Total Bilirubin (0.2-1.0) mg/dL Direct Bilirubin (0.0-0.2) mg/dL Indirect Bilirubin (0.0-0.8) mg/dL AST (15-37) U/L ALT (12-78) U/L Alkaline Phosphatase (45-117) U/L Total Creatine Kinase (39-308) U/L CK-MB (CK-2) (0.5-3.6) ng/mL Troponin I (0.02-0.05) ng/mL Total Protein (6.4-8.2) g/dL Albumin (3.4-5.0) g/dL Lipase (73-393) U/L Urine Color Ai (Yellw/Straw) Urine Clarity Hazy H (Clear) Urine pH 5.0 (5.0-8.5) Ur Specific Avery 1.027 (1.002-1.035) Urine Protein Negative (Neg-Trace) mg/dL Urine Glucose (UA) Negative (Negative) mg/dL Urine Ketones Negative (Negative) mg/dL Urine Occult Blood Negative (Negative) Urine Nitrate Negative (Negative) Urine Bilirubin Negative (Negative) Urine Urobilinogen 2.0 H (Less than 2) mg/dL Ur Leukocyte Esterase Large H (Negative) Urine RBC Less than 1 (0-3) /hpf Urine WBC 12 H (0-5) /hpf Calcium Oxalate Crystal Rare H (None) /hpf Urine Bacteria Rare H (None) /hpf Urine Mucus Few H (Occasional) /lpf Micro UA Comment Culture indicated Ur Microscopic Review Not Reportable Urine Culture Comments Culture indicated Imaging Data Radiologist's impression: Chest X-Ray 08/02/18 16:16 CONCLUSION: Elevation left hemidiaphragm with left basilar atelectasis/scarring. Head CT 08/02/18 17:50 CONCLUSION: No acute intracranial abnormality. . Discharge Plan Physicians Team ED Provider: Malia Cruz ED Midlevel Provider: Adeline Rice Primary Care Provider: Primary Care Physici,Bijal Rxs /Orders / Referrals /Forms Prescriptions: No Action tamsulosin [Flomax] 0.4 mg Capsule 0.4 mg PO DAILY RF: 0 Discharge Interventions Interventions: Vital Signs Last Done: 08/02/18 18:00 Status ED Status: Admitted Observation Patient
[2018-08-02 18:18] LABS: Bacteria,Urine Rare /hpf; Bilirubin,Urine Negative (Negative); Calcium Oxalate Crystals,Urine Rare /hpf; Clarity,Urine Hazy (Clear); Color,Urine Amber (Yellw/Straw); Glucose,Urine (UA) Negative (Negative); Leukocyte Esterase,Urine Large (Negative); Mucus,Urine Few /lpf (Occasional); Nitrite,Urine Negative (Negative); Specific Gravity,Urine 1.027 (1.002-1.035)
[2018-08-02 18:22] LABS: Anion Gap 9 meq/L (5-15); Blood Urea Nitrogen 32 mg/dL (7-18); Calcium 8.7 mg/dL (8.5-10.1); Carbon Dioxide 25.9 meq/L (21.0-32.0); Chloride 106 meq/L (98-107); Glomerular Filtration Rate 60 mL/min (>89); Glucose,Random 96 mg/dL (74-106); Potassium 4.3 meq/L (3.5-5.1); Sodium 141 meq/L (136-145)
[2018-08-02 18:26] LABS: Creatine Kinase 110 U/L (39-308)
--- NOTE | 2018-08-02 18:35 | CT ---
EXAM DATE: 08/02/2018 5:53 PM EDT AGE/SEX: 77 years / Male INDICATIONS: Chest pain and hypertension. CLINICAL DATA: This is the patient's initial encounter. Patient reports that signs and symptoms have been present for 1 day and indicates a pain score of 5/10. MEDICAL/SURGICAL HISTORY: Hypertension. None. RADIATION DOSE: 56.35 CTDI (mGy) COMPARISON: [facility], MRI BRAIN W & W/O CONTRAST, 12/01/2016. . TECHNIQUE: CT of the head without contrast. Using automated exposure control and adjustment of the mA and/or kV according to patient size, radiation dose was kept as low as reasonably achievable to ob tain optimal diagnostic quality images. DICOM format image data is available electronically for revi ew and comparison. FINDINGS: Cerebrum: The ventricles are normal for age. No evidence of midline shift, mass lesion, hemorrhage or acute infarction. No extraaxial fluid collections are seen. Posterior Fossa: The cerebellum and brainstem are intact. The 4th ventricle is midline. The cerebe llopontine angle is unremarkable. Extracranial: The visualized portion of the orbits is intact. Skull: The calvaria is intact. No evidence of skull fracture. CONCLUSION: No acute intracranial abnormality. . Electronically signed by: Damian Carranza MD 08/02/2018 6:33 PM EDT
[2018-08-02 18:41] LABS: Alanine Aminotransferase 22 U/L (12-78); Albumin 3.8 g/dL (3.4-5.0); Aspartate Aminotransferase 17 U/L (15-37); Creatine Kinase MB 1.8 ng/mL (0.5-3.6); Lipase 179 U/L (73-393)
[2018-08-02 18:43] LABS: Alkaline Phosphatase 65 U/L (45-117); Total Protein 7.3 g/dL (6.4-8.2)
[2018-08-02] MEDS ORDERED: Acetaminophen 500 MG Tablet PO PRN (18:53)
[2018-08-02] MEDS: Nitrofurantoin Monohydrate-Macrocrystal 100 MG Capsule PO SCH (20:15)
[2018-08-02 22:30] LABS: Creatine Kinase 118 U/L (39-308)
[2018-08-03 01:00] LABS: Creatine Kinase 112 U/L (39-308)
[2018-08-03 08:18] VITALS: BP 145/68; PULSE 60; RESP 20; TEMP 97.6; O2SAT 95
[2018-08-03] MEDS: Nitrofurantoin Monohydrate-Macrocrystal 100 MG Capsule PO SCH (08:21)
--- NOTE | 2018-08-03 08:50 | P.HPCA ---
History of Present Illness Primary Care Physician: No Primary Care Physician Chief Complaint: Chest pain History of Present Illness: This is a 77-year-old male the present via private vehicle with complaint of chest discomfort. He speaks Tajik only. He prefers to use the nighttime nurse for translation at this time. He states that he has had a constant discomfort for a day and a half in his chest. Possibly worsened by walking around doing chores in the house. Found nothing in particular to help. May be a little short of breath. No nausea or diaphoresis. Denies history of CAD but states he has had his a heart evaluated in the past. He had a nonischemic Lexiscan in April 2017. States he has been in [facility] for 5 years. Does not use a primary care physician in this area, he gets prescriptions when he goes back to [place]. States he takes blood pressure medicine prostate medicine but cannot recall their names. Denies recent illness. Denies fevers or chills. Patient has history of hypertension, BPH. Denies hyperlipidemia, diabetes, and known CAD. Lifetime non-smoker. Denies alcohol or illicit drug use. Denies family history of CAD. - Diagnosis (1) Chest pain (2) Hypertension (3) BPH (benign prostatic hyperplasia) (4) UTI (urinary tract infection) Review of Systems General: Patient denies fevers, chills, and recent travel. HEENT: Patient denies headache, sore throat, difficulty swallowing. Cardiovascular: Has the chest discomfort as mentioned above. Denies sensation of heart beating rapidly or irregularly. No syncope. Denies diaphoresis. Respiratory: A little bit of shortness of breath. Denies inspirational chest discomfort. Denies coughing wheezing or hemoptysis. GI: Patient denies nausea, vomiting, diarrhea, abdominal pain, bloody stools. Musculoskeletal: Patient denies joint pain or edema. Denies calf pain or edema. Neurovascular: Patient denies numbness, tingling, weakness in extremities. Denies headache. Endocrine: Denies polyuria and polydipsia. Hematologic: Denies easy bruising. Skin: Denies rash or itching. PMF - History History Provided By: Patient, Family Member - Medical History Medical History: Medical History (Last Reviewed 08/02/18 @ 18:05 by ARBEN Griffin) Hypertension - Tobacco History Second Hand Smoke Exposure: No Smoking Status: Never smoker Tobacco Type: Cigarettes - Alcohol History How Often Do You Have a Drink Containing Alcohol: Never - Substance Use History Substance History: No History of Abuse - Travel History Recent Travel in the [place] Within the Last 8 Weeks: No Recent Travel Out of the Country Within the Last 8 Weeks: No - Immunization History Tetanus Immunization: Unsure Medications and Allergies Active Medications: Active Medications Acetaminophen (Tylenol) 500 mg PO Q4H PRN PRN Reason: HEADACHE N[facility] Last Admin: 08/03/18 08:21 Dose: 100 mg Sodium Chloride (Ns Flush) 2 ml IV.FLUSH BID [facility] Last Admin: 08/03/18 08:21 Dose: 2 ml Sodium Chloride (Ns Flush) 2 ml IV.FLUSH PRN PRN PRN Reason: FLUSH AFTER USING IV ACCESS Last Admin: 08/02/18 20:34 Dose: 2 ml Tamsulosin HCl (Flomax) 0.4 mg PO DAILY [facility] Last Admin: 08/03/18 08:21 Dose: 0.4 mg Allergies Allergy/AdvReac Type Severity Reaction Status Date / Time penicillin G Allergy Severe HIVES Verified 08/02/18 17:45 Home Medications Medication Instructions Recorded Confirmed Type tamsulosin [Flomax] 0.4 mg PO DAILY 08/02/18 08/02/18 History Exam Vital signs: Vital Signs 08/02/18 15:49 08/02/18 15:52 08/02/18 17:42 Temperature 98.1 F Pulse Rate 72 60 64 Respiratory Rate 20 20 Blood Pressure 161/72 H 138/63 Pulse Oximetry 97 97 96 08/02/18 18:00 08/02/18 19:54 08/02/18 21:30 Temperature Pulse Rate 62 64 Respiratory Rate 16 Blood Pressure 114/58 L Pulse Oximetry 97 98 08/02/18 22:00 08/02/18 22:05 08/02/18 22:10 Temperature 98.2 F Pulse Rate 60 59 L Respiratory Rate 20 Blood Pressure 121/56 L Pulse Oximetry 98 98 08/03/18 05:01 08/03/18 08:15 Temperature 98.5 F 97.6 F Pulse Rate 52 L 60 Respiratory Rate 22 20 Blood Pressure 136/67 145/68 H Pulse Oximetry 96 95 Intake & Output 08/02/18 08/03/18 08/03/18 18:59 06:59 18:59 Intake Total 400 / 400 Balance 400 / 400 Weight 81.647 kg 81.64 kg Intake: Oral 400 / 400 Other: Date of Last Bowel Movement 08/01/18 Weight On Admission 81.64 kg Narrative: GENERAL: This is a well-nourished, well-developed patient, in no apparent distress. Patient speaks in clear complete sentences. Patient is pleasant. HEENT: Head is atraumatic and normocephalic. Neck is supple without lymphadenopathy and trachea is midline. No JVD or carotid bruits. CARDIOVASCULAR: Regular rate and rhythm without murmurs, gallops, or rubs. RESPIRATORY: Clear to auscultation. Breath sounds equal bilaterally. No wheezes , rales, or rhonchi. Chest wall is nontender. No use of accessory muscles. GASTROINTESTINAL: Abdomen is nontender, nondistended. Abdomen soft. No obvious pulsatile mass or bruit. No CVA tenderness. Strong femoral pulses bilaterally. Normal bowel sounds in all quadrants. MUSCULOSKELETAL: Patient is moving upper and lower extremities freely. No calf tenderness or edema, no Homans sign. Strong pulses in upper and lower extremities. NEUROLOGICAL: Patient is alert and oriented. Cranial nerves 2-12 are grossly intact. No focal deficits and speech is clear. SKIN: No rash and turgor is normal. Results 08/02/18 16:55 08/02/18 16:55 Cardiac Enzymes 08/02/18 08/02/18 08/02/18 Range/Units 16:55 16:55 21:40 AST 17 Cancelled (15-37) U/L CK-MB (CK-2) 1.8 (0.5-3.6) ng/mL Troponin I Less than 0.02 L Less than 0.02 L (0.02-0.05) ng/mL 08/03/18 Range/Units 00:15 AST (15-37) U/L CK-MB (CK-2) (0.5-3.6) ng/mL Troponin I Less than 0.02 L (0.02-0.05) ng/mL CBC 08/02/18 Range/Units 16:55 WBC 4.5 (4.0-11.0) th/mm3 RBC 4.34 L (4.50-5.90) mil/mm3 Hgb 15.2 (13.0-17.0) gm/dL Hct 43.3 (39.0-51.0) % Plt Count 234 (150-450) th/mm3 Neut # (Auto) 1.8 (1.8-7.7) th/mm3 Lymph # (Auto) 2.0 (1.0-4.8) th/mm3 [place] # (Auto) 0.4 (0.0-0.9) th/mm3 Eos # (Auto) 0.2 (0.0-0.4) th/mm3 Baso # (Auto) 0.1 (0.0-0.2) th/mm3 Comprehensive Metabolic Panel 08/02/18 08/02/18 Range/Units 16:55 16:55 Sodium 141 (136-145) meq/L Potassium 4.3 (3.5-5.1) meq/L Chloride 106 (98-107) meq/L Carbon Dioxide 25.9 (21.0-32.0) meq/L BUN 32 H (7-18) mg/dL Creatinine 1.17 (0.60-1.30) mg/dL Calcium 8.7 (8.5-10.1) mg/dL Direct Bilirubin 0.3 H Cancelled (0.0-0.2) mg/dL Indirect Bilirubin 1.3 H Cancelled (0.0-0.8) mg/dL AST 17 Cancelled (15-37) U/L ALT 22 Cancelled (12-78) U/L Alkaline Phosphatase 65 Cancelled (45-117) U/L Total Protein 7.3 Cancelled (6.4-8.2) g/dL Albumin 3.8 Cancelled (3.4-5.0) g/dL Intake and Output 08/02/18 08/03/18 08/03/18 22:59 06:59 14:59 Intake Total 400 / 400 Balance 400 / 400 Intake: Oral 400 / 400 Other: Date of Last Bowel Movement 08/01/18 Weight 81.64 kg 81.64 kg Weight On Admission 81.64 kg - Imaging and Cardiology Imaging: Impressions Chest X-Ray 08/02/18 16:16 CONCLUSION: Elevation left hemidiaphragm with left basilar atelectasis/scarring. Head CT 08/02/18 17:50 CONCLUSION: No acute intracranial abnormality. . EKG interpretations - EKG EKG shows: sinus rhythm (EKGs are sinus rhythm without significant ST segment depressions or elevations. There are nonspecific T wave changes.) Caprini VTE Risk Assessment Caprini VTE Risk Assessment: Moderate/High Risk (score >= 2) Caprini Risk Assessment Model: Point Value = 1 Point Value = 2 Point Value = 3 Point Value = 5 Age 41-60 Minor surgery BMI > 25 kg/m2 Swollen legs Varicose veins or History of unexplained or recurrent spontaneous Oral contraceptives or hormone replacement Sepsis (< 1 month) Serious lung disease, including pneumonia (< 1 month) Abnormal pulmonary function Acute myocardial infarction Congestive heart failure (< 1 month) History of inflammatory bowel disease Medical patient at bed rest Age 61-74 Arthroscopic surgery Major open surgery (> 45 min) Laparoscopic surgery (> 45 min) Malignancy Confined to bed (> 72 hours) Immobilizing plaster cast Central venous access Age >= 75 History of VTE Family history of VTE Factor V Leiden Prothrombin [id number] Lupus anticoagulant Anticardiolipin antibodies Elevated serum homocysteine Heparin-induced thrombocytopenia Other congenital or acquired thrombophilia Stroke (< 1 month) Elective arthroplasty Hip, pelvis, or leg fracture Acute spinal cord injury (< 1 month) Prophylaxis Regimen: Total Risk Factor Score Risk Level Prophylaxis Regimen 0-1 Low Early ambulation 2 Moderate Order ONE of the following: *Sequential Compression Device (SCD) *Heparin 5000 units SQ BID 3-4 Higher Order ONE of the following medications: *Heparin 5000 units SQ TID *Enoxaparin/Lovenox 40 mg SQ daily (WT < 150 kg, CrCl > 30 mL/min) *Enoxaparin/Lovenox 30 mg SQ daily (WT < 150 kg, CrCl > 10-29 mL/min) *Enoxaparin/Lovenox 30 mg SQ BID (WT < 150 kg, CrCl > 30 mL/min) AND/OR *Sequential Compression Device (SCD) 5 or more Highest Order ONE of the following medications: *Heparin 5000 units SQ TID (Preferred with Epidurals) *Enoxaparin/Lovenox 40 mg SQ daily (WT < 150 kg, CrCl > 30 mL/min) *Enoxaparin/Lovenox 30 mg SQ daily (WT < 150 kg, CrCl > 10-29 mL/min) *Enoxaparin/Lovenox 30 mg SQ BID (WT < 150 kg, CrCl > 30 mL/min) AND *Sequential Compression Device (SCD) Assessment and Plan - Assessment (1) Chest pain Code(s): R07.9 - Chest pain, unspecified Status: Acute (2) Hypertension Code(s): I10 - Essential (primary) hypertension Status: Acute (3) BPH (benign prostatic hyperplasia) Code(s): N40.0 - Benign prostatic hyperplasia without lower urinary tract symptoms Status: Acute (4) UTI (urinary tract infection) Code(s): N39.0 - Urinary tract infection, site not specified Status: Acute - Plan * Chest pain: Patient has had serial cardiac enzymes and EKGs for ruling out purposes. Patient was also seen by Dr. Nick of cardiology in the chest pain center. He will undergo a Lexiscan and be discharged home if the stress test is nonischemic. I instructed the patient on the importance of having a primary care physician in this area, he voices understanding. His is also at the bedside and understands as well. Return to ED for interval issues. * Hypertension: Continues medication. He has been also advised to bring in the bottles of medications that he takes next time he happens to come to the hospital. Or keep a list. * BPH: Continue medication. * UTI, start antibiotic. Needs follow-up with PCP. Patient is stable at this time. He is agreeable to this plan. H&P: Quality - VTE Deep Vein Thrombosis/Pulmonary Embolism Present on Admission: No
[2018-08-03] MEDS ORDERED: Regadenoson Inj 0.4 MG/5 ML Syringe IV.PUSH ONE (09:33)
--- NOTE | 2018-08-03 11:08 | NM ---
EXAM DATE: 08/03/2018 9:14 AM EDT AGE/SEX: 77 years / Male INDICATIONS:Angina. . Mid-sternal chest pain. CLINICAL DATA: This is the patient's initial encounter. Patient reports that signs and symptoms have been present for 1 day and indicates a pain score of 2/10. MEDICAL/SURGICAL HISTORY: Hypertension. . COMPARISON: [facility] [place], MYOCARDIAL PERF PHARM SPECT, 05/16/2017. . DOSE: 8.6 mCi Tc 99m Myoview at rest 27.3 mCi [id number] at stress 0.4 mg Lexiscan STRESS SYMPTOMS: None. EJECTION FRACTION: 64 % TECHNIQUE: The patient underwent pharmacologic stress with infusion of prescribed dose. Continuous ECG tracing was monitored during stress. Gated SPECT imaging was performed after stress and conventi onal SPECT imaging was performed at rest. The examination was performed on a SPECT/CT scanner, both attenuation and non-corrected datasets were reviewed. FINDINGS: Distribution: The maximum perfused segment at stress is in the septal wall. Perfusion Study: The pattern of perfusion at stress is within normal limits. As a summed stress s core of 4. Gated Study: There are intact wall motion and wall thickening without hypokinetic or dyskinetic segm ents. The ejection fraction is calculated at 64%. RISK CATEGORY: Low (<1% Annual Motality Rate) CONCLUSION: 1. Normal wall motion and calculated ejection fraction. 2. No fixed or reversible wall defect to suggest ischemia or infarction. Electronically signed by: Kade Conklin MD 08/03/2018 11:07 AM EDT
--- NOTE | 2018-08-03 16:53 | ECG ---
Date Performed: 08/02/2018 Time Performed: 15:58:10 PTAGE: 77 years EKG: Sinus rhythm WITH SINUS ARRHYTHMIA NORMAL ECG Since PREVIOUS TRACING , no significant change noted PREVIOUS TRACIN05/05/2018 08.36 DOCTOR: Perla Nick Interpretating Date/Time 08/03/2018 16:51:53
--- NOTE | 2018-08-03 16:54 | ECG ---
Date Performed: 08/02/2018 Time Performed: 19:52:13 PTAGE: 77 years EKG: Sinus rhythm NONSPECIFIC T-WAVE ABNORMALITY BORDERLINE ECG Since PREVIOUS TRACING , no significant change noted PREVIOUS TRACIN08/02/2018 15.58 DOCTOR: Perla Nick Interpretating Date/Time 08/03/2018 16:53:11
--- NOTE | 2018-08-03 16:56 | TR ---
Date Performed: 08/03/2018 Time Performed: 09:49:56 DOCTOR: Perla Nick DRUG LIST: CLINICAL HISTORY: REASON FOR TEST: CHEST PAIN REASON FOR ENDING: OBSERVATION: CONCLUSION: Lexiscan stress test was performed under standard four minute protocol. Radionuclid e was injected one minute prior to ending the test. No electrocardiographic abormalities were present to suggest ischemia. Nuclear imaging and interpretation are pending. COMMENTS: Lexiscan stress test was performed under standard four minute protocol. Radionuclide was injected one minute prior to ending the test. No electrocardiographic abormalities were present t o suggest ischemia. Nuclear imaging and interpretation are pending.
--- NOTE | 2018-08-03 16:56 | ECG ---
Date Performed: 08/03/2018 Time Performed: 01:06:30 PTAGE: 77 years EKG: Sinus rhythm NONSPECIFIC T-WAVE ABNORMALITY BORDERLINE ECG Since PREVIOUS TRACING , no significant change noted PREVIOUS TRACIN08/02/2018 19.52 DOCTOR: Perla Nick Interpretating Date/Time 08/03/2018 16:54:18
== END 2018-08-03 14:27 | disposition home or self-care (01) ==
LOC: NEDA 15:46 → NEPC 15:46 → NEPFCDU 20:15
PROVIDERS: ADMIT Internal Medicine Cardiovascular Disease; ATTEND Internal Medicine Cardiovascular Disease